=== PATIENT | male | born 1955 | race Native Hawaiian/Other Pacific Islander ===

== ENCOUNTER 2016-09-14 16:22 | Observation (INO) | payer BC ==
[~2016-09-14] VITALS: Ht 165.1 cm; Wt 82.7 kg
[2016-09-14 16:39] LABS: PLATELET COUNT 191 K/uL (142-355)
[2016-09-14 16:46] LABS: SODIUM 138 mmol/L (136-145)
[2016-09-14 17:03] LABS: PARTIAL THROMBOPLASTIN TIME 45.4 SECONDS (24.5-33.6)
--- NOTE | 2016-09-14 18:03 | NUR ---
1805 PT TRANSFERRED TO ROOM 113 FROM OR VIA STRECTHER. FAMILY AT BS. PT ALERT AND ORIENTED. DRESSING TO RT ARM/ELBOW DRY AND INTACT. FRANCESCA DRAIN X 1 INTACT WITH SMALL AMT OF BLOODY DRAINAGE NOTED IN BULB. WILL CON'T TO MONITOR
[2016-09-14 18:58] VITALS: BP 135/69; TEMP 97.6; Ht 165.1 cm; Wt 82.7 kg
[2016-09-14] MEDS ORDERED: ROPINIROLE2 M1 PO (19:08)
[2016-09-14] MEDS ORDERED: TAMS0.4C PO (19:09)
[2016-09-14] MEDS ORDERED: METOPROLOL25 M1 PO (19:09)
[2016-09-14] MEDS ORDERED: JANTOVEN2.5 MG PO (19:10)
[2016-09-14] MEDS ORDERED: JANTOVEN5 MG PO (19:11)
[2016-09-14] MEDS ORDERED: COZAAR25 MG PO (19:11)
[2016-09-14] MEDS ORDERED: ROSU10TA PO (19:12)
[2016-09-14] MEDS ORDERED: LORA1TAB17 PO (19:12)
[2016-09-14 20:00] VITALS: BP 111/70; TEMP 97.5
[2016-09-15 00:15] VITALS: BP 108/67; TEMP 97.6
[2016-09-15 04:00] VITALS: BP 124/69; TEMP 97.6
[2016-09-15 07:16] LABS: PLATELET COUNT 178 K/uL (142-355)
--- NOTE | 2016-09-15 07:47 | NUR ---
09/15/2016 @ 0650 FRANCESCA DRAIN STRIPPED AND BULB EMPTIED, TOTAL OF 20 MLS OF BRIGHT RED DRAINAGE. PATIENT TOLERATED WELL.
[2016-09-15 08:00] VITALS: BP 122/71; TEMP 97.8
--- NOTE | 2016-09-15 09:03 | NUR ---
0900 PT REQUESTED TO TAKE MEDS TONIGHT INSTEAD OF NOW. PT STATES HE TAKES MEDS DAILY AROUND 7PM. NOTIFIED
[2016-09-15 09:09] LABS: PARTIAL THROMBOPLASTIN TIME 45.4 SECONDS (24.5-33.6)
[2016-09-15 12:00] VITALS: BP 119/72; TEMP 97.6
--- NOTE | 2016-09-15 14:27 | NUR ---
1420 DR SHIRLEY HERE IN ROOM A TTHIS TIME. DRESSING TO RT ARM REMOVED PER MD. SUTURES INTACT . FRANCESCA DRAIN INTACT. TELFA APPLIED AND INCISION COVERED WITH 4X4S AND WRAPPED LOOSELY WITH COBAN. NO ACTIVE BLEEDING NOTED AT THIS TIME. EMPTIED FRANCESCA DRAIN AT THIS TIME 10ML OF BLOODY DRAINAGE AT TIME OF DISCHARGE. EXPLAINED TO PT TO NOT REMOVE DRESSING FOR ANY RESON. ALSO EXPLAINED TO PT AND TO MONIOTR SWELLING TO FOREARM AND IF ANY BLEEDING OR INCREASE IN SWELLING NOTED TO NOTIFY MD . BOTH PT AND VERBLAIZED UNDERSTANDING.
--- NOTE | 2016-09-15 14:34 | NUR ---
1430 PT LEFT WITH AMBULATORY. NO DISTRESS OR CO AT THIS TIME.
== END 2016-09-15 14:20 | disposition home or self-care (01) ==
LOC: MED/SURG 16:22
PROVIDERS: ADMIT Student in an Organized Health Care Education/Training Program
PROC: 0X9 Anatomical Regions, Upper Extremities, Drainage (ICD-10-PCS; principal; 2016-09-14)
PROC: 05LY0ZZ Occlusion of Upper Vein, Open Approach (ICD-10-PCS; 2016-09-14)
DX: S50.01XA Contusion of right elbow, initial encounter (principal); Z79.01 Long term (current) use of anticoagulants
CPT/HCPCS: 36415; 80048; 85027; 85610; 85730; 96365; 96366; 99220; C1729; G0378; G0379; J0690; J2001; J2250; J2270; J2704; J3490

== ENCOUNTER 2020-01-23 13:46 | Outpatient (CLI) | payer OTHER ==
[~2020-01-23 13:46] MED LIST: COZAAR25 MG PO; JANTOVEN2.5 MG PO; JANTOVEN5 MG PO; LORA1TAB17 PO; METOPROLOL25 M1 PO; ROPINIROLE2 M1 PO; ROSU10TA PO; TAMS0.4C PO
== END 2020-01-23 20:47 | disposition home or self-care (01) ==
LOC: RAD 13:46
PROVIDERS: ATTEND Internal Medicine
DX: I61.9 Nontraumatic intracerebral hemorrhage, unspecified (principal); R41.3 Other amnesia; H53.2 Diplopia; Z95.1 Presence of aortocoronary bypass graft; I10 Essential (primary) hypertension; E78.00 Pure hypercholesterolemia, unspecified; M54.9 Dorsalgia, unspecified; M25.511 Pain in right shoulder; N40.0 Benign prostatic hyperplasia without lower urinary tract symptoms; R32 Unspecified urinary incontinence; G25.81 Restless legs syndrome